=== PATIENT | female | born 1975 | race African-American/Black ===

== ENCOUNTER 2020-02-03 15:27 | Outpatient (CLI) | payer OTHER, SELFPAY ==
--- NOTE | ~2020-02-03 | US_ITS ---
EXAMINATION: US pelvic complete w TV DATE: 02/03/2020 16:09 INDICATION: Right pelvic pain TECHNIQUE: Multiple transabdominal and endovaginal sonographic images of the pelvis were obtained. COMPARISON: None. FINDINGS: The uterus measures 10.4 x 6.4 x 5.6 cm. The endometrial complex measures 6 mm in thickness. 4.2 x 2 .5 x 3.5 cm hypoechoic uterine fibroid at the posterior uterine body and smaller 1.4 x 1.5 x 1.1 cm h ypoechoic fibroid at the more cephalad posterior uterine fundus. 4 mm nabothian cyst at the cervix. T he right ovary measures 3.9 x 1.5 x 2.9 cm. 2.7 x 2.1 x 1.6 cm complex cystic right ovarian lesion wh ich is predominantly anechoic with a few thin linear internal septations and small peripheral avascul ar hypoechoic region suggesting a hemorrhagic cyst. The left ovary measures 2.5 x 2.0 x 1.5 cm. There is normal vascular flow in the ovaries. There is trace amount of likely physiologic fluid at the rig ht adnexa. IMPRESSION: 1. A couple uterine fibroids. 2. 2.7 cm complex cystic right ovarian lesion with appearance favoring a hemorrhagic cyst. Consider f ollow-up ultrasound in 6-12 weeks to document resolution. Reviewed, dictated and finalized at location . CUTTING MACHINE OPERATOR IMPRESSION: 1. A couple uterine fibroids. 2. 2.7 cm complex cystic right ovarian lesion with appearance favoring a hemorr hagic cyst. Consider follow-up ultrasound in 6-12 weeks to document resolution.
== END 2020-02-03 15:28 | disposition home or self-care (01) ==
PROVIDERS: PCP Family Medicine; Visit Provider Student in an Organized Health Care Education/Training Program
DX: R10.2 Pelvic and perineal pain (principal); D25.9 Leiomyoma of uterus, unspecified; N83.291 Other ovarian cyst, right side
CPT/HCPCS: 76830; 76856

== ENCOUNTER 2020-04-29 10:01 | Outpatient (CLI) | payer OTHER, SELFPAY ==
--- NOTE | ~2020-04-29 | US_ITS ---
EXAMINATION: US pelvic complete w TV EXAM DATE: 04/29/2020 10:39 INDICATION: R10.2 - Pelvic and perineal pain. TECHNIQUE: Pelvic transabdominal and transvaginal sonogram was performed. There are multiple graysca le and Doppler images available for interpretation. Comparison is made to prior examination from 01/10. FINDINGS: Uterus measures 11.4 x 4.8 x 6.0 cm, with several fibroids suspected up to 3 cm in the pos terior myometrium. Endometrial stripe measures 6 mm, within normal limits. There is no free pelvic f luid. Right adnexa: The ovary measures 8.8 x 6.2 x 9.0 cm, most of this volume being taken up by an anechoi c cystic lesion which is new compared to previous examination. No evidence of mural nodule. Some delia pheral flow probably within the ovarian parenchyma. Left adnexa: The ovary measures 2.4 x 1.6 x 1.4 cm and is morphologically normal. Ovarian vascular fl ow confirmed. IMPRESSION: Interval development of large right ovarian simple cystic lesion. Differential diagnosis includes hemorrhagic cyst, unusually large physiologic cyst, endometrioma, cystic ovarian neoplasm. R ecommend 6 week follow-up pelvic sonogram. Reviewed, dictated and finalized at location A. GRINDER IMPRESSION: Interval development of large right ovarian simple cystic lesion. D ifferential diagnosis includes hemorrhagic cyst, unusually large physiologic cy st, endometrioma, cystic ovarian neoplasm. Recommend 6 week follow-up pelvic so nogram.
== END 2020-04-29 10:02 | disposition home or self-care (01) ==
PROVIDERS: PCP Family Medicine; Visit Provider Student in an Organized Health Care Education/Training Program
DX: R10.2 Pelvic and perineal pain (principal); N83.9 Noninflammatory disorder of ovary, fallopian tube and broad ligament, unspecified
CPT/HCPCS: 76830; 76856

== ENCOUNTER → 2020-05-17 02:26 | Outpatient (CLI) | payer OTHER, SELFPAY ==
[2020-05-17 22:46] LABS: SARS-CoV-2 RNA PCR Negative
== END ==
PROVIDERS: PCP Family Medicine; Visit Provider Student in an Organized Health Care Education/Training Program
DX: Z01.812 Encounter for preprocedural laboratory examination (principal); Z20.822 Contact with and (suspected) exposure to COVID-19
CPT/HCPCS: C9803; U0003; U0005

== ENCOUNTER 2020-05-20 00:54 | Day surgery (SDC) | payer OTHER, SELFPAY ==
[2020-05-12 16:40] VITALS: BMI 25.7
--- NOTE | 2020-05-19 15:31 | WPDANESEPPF ---
Anes - Initial Pre Proc Eval Procedure: Operation Date: 05/20/20 07:30 Proposed Procedures p Laparoscopic Right Salpingo-Oophorectomy And Left Salpingectomy - Stephanie Gomez MD Date/Time: 05/19/20 15:31 Surgeon: Stephanie Gomez MD Pre Op Diagnosis: Ovarian Cysts Patient Data Age: 44 Gender: F Height: 1.8 m Weight: 83.5 kg Allergies Allergy/AdvReac Type Severity Reaction Status Date / Time Penicillins Allergy Unknown Unknown Verified 05/12/20 16:02 Sulfa (Sulfonamide Allergy Unknown Unknown Verified 05/12/20 16:02 Antibiotics) naproxen [From Anaprox] AdvReac Unknown unknown Verified 05/12/20 16:02 Iodine and Iodide Containing AdvReac sneezing Verified 05/12/20 16:02 Produc Home Medications Medication Instructions Recorded Confirmed Type ascorbate calcium (vitamin C) 500 500 mg PO DAILY 01/22/20 05/12/20 History mg tablet cholecalciferol (vitamin D3) 25 25 mcg PO DAILY 01/22/20 05/12/20 History mcg (1,000 unit) capsule multivitamin,nr-itax-[id number] 1 tablet PO DAILY 01/22/20 05/12/20 History omega-3 fatty acids 1,000 mg 1,000 mg PO DAILY 01/22/20 05/12/20 History capsule zinc 50 mg tablet 50 mg PO DAILY 01/22/20 05/12/20 History vedolizumab 300 mg intravenous 300 mg IV ONCE 05/12/20 05/12/20 History solution Patient hx anesthesia problems: none Family hx anesthesia problems: none PMFSH Past Medical History Medical History Anemia Asthma History of blood transfusion Migraine Miscarriage Post depression 2002 Ulcerative colitis Surgical History Surgical History H/O breast surgery History of bunionectomy of both great toes History of endometrial ablation Family History Family History Mother Breast cancer Cervical cancer Acute myocardial infarction Hypertension High cholesterol Father High cholesterol Hypertension Cerebrovascular accident Social History Social History Smoking status: Never smoker Substance use: never Living arrangements: with family Spiritual care concerns: No Anes - Eval Final PreProcedure Day of Procedure 05/19/20 15:31 Patient weight: normal Heart: regular rate and rhythm Lungs: clear to auscultation and normal air movement Airway: Mallampati scale class II Neurological: alert and oriented Last oral intake: >/= 8 hours ASA classification: II Emergent: no Anesthetic plan: proceed Anesthesia type and monitoring: general ETT Informed Consent: The patient's anesthetic plan and its attendant risks and benefits were discussed with the patient/family/POA. Questions were solicited and answers provided to the satisfaction of the patient/family/POA.
--- NOTE | 2020-05-19 16:34 | PM.IMHP ---
H&P: HPI History of Present Illness Date/Time: 05/19/20 16:34 Patient is a 44yo woman who initially presented to the gynecology office with complaints of pelvic pain in 01/2020. She reported onset of pelvic pain a little more than 1 year prior to presentation. Patient also reports dyspareunia, however, this has been persistent for several years. Pelvic ultrasound was performed and showed a 2.7cm complex right ovarian cyst. Patient was started on OCPs and a pelvic US was repeated three months later in 04/2020. Repeat US findings showed a significant interval enlargement of ovarian cyst, which is now measuring 9 cm. Lengthy discussion had with patient regarding management options and due to large size of cyst as well as symptoms, decision made to proceed with surgical management. In general, patient reports feeling well today without complaints. Chief Complaint: Right ovarian cyst Review of Systems Review of Systems: All systems reviewed & are unremarkable except as noted in HPI and below Constitutional: Constitutional: Reports as per HPI, Reports no additional constitutional complaints, Denies chills, Denies fever(s), Denies headache(s) and Denies night sweats Eyes: Eyes: Reports as per HPI and Reports no additional eye complaints ENT: Reports system reviewed and no additional complaints, except as documented, Reports as per HPI, Reports Normal hearing present and Denies headache(s) Cardiovascular: Cardiovascular: Reports as per HPI, Reports no additional cardiovascular complaints, Denies chest pain and Denies dyspnea Respiratory: Respiratory: Reports as per HPI, Reports no additional respiratory complaints, Denies cough and Denies dyspnea Gastrointestinal: Gastrointestinal: Reports as per HPI, Reports no additional gastrointestinal complaints, Denies abdominal pain, Denies change in bowel habits, Denies change in stool character, Denies nausea and Denies vomiting Genitourinary: Genitourinary: Reports no additional female genitourinary complaints, Reports as per HPI, Denies abnormal vaginal bleeding, Denies genital lesions, Denies hot flashes, Denies dyspareunia, Denies pelvic pain, Denies sexual dysfunction, Denies urinary incontinence, Denies vaginal discharge, Denies vaginal dryness and Denies vaginal odor Musculoskeletal: Musculoskeletal: Reports no additional musculoskeletal complaints and Reports as per HPI Integumentary/Breasts: Skin/Breast: Reports system reviewed and no additional complaints, except as docu, Reports as per HPI, Denies breast pain and Denies nipple discharge Neurologic: Reports system reviewed and no additional complaints, except as documented, Reports as per HPI, Reports Normal hearing present and Denies headache(s) Psychiatric: Psychiatric: Reports no additional psychiatric complaints, Reports as per HPI, Denies anxiety and Denies depression Endocrine: Endocrine: Reports no additional endocrine complaints and Reports as per HPI Hematologic/Lymphatic: Hematologic/Lymphatic: Reports no additional hematologic/lymphatic complaints and Reports as per HPI Allergic/Immunologic: Allergic/Immunologic: Reports no additional allergic/immunologic complaints and Reports as per HPI PMFSH Past Medical History Medical History Anemia Asthma History of blood transfusion Migraine Miscarriage Post depression 2002 Ulcerative colitis Surgical History Surgical History H/O breast surgery History of bunionectomy of both great toes History of endometrial ablation Family History Family History Mother Breast cancer Cervical cancer Acute myocardial infarction Hypertension High cholesterol Father High cholesterol Hypertension Cerebrovascular accident Social History Social History Smoking status: Never smoker
[2020-05-20] VITALS (12 sets, daily range): BP systolic 104–140; BP diastolic 61–88; PULSE 64–97; RESP 10–18; TEMP 36.6–36.8; O2SAT 99–100
[2020-05-20] MEDS: LACTATED RINGERS 1,000 ML 30 ML IV CONT ×2 (06:40→09:04)
[2020-05-20] MEDS: ACETAMINOPHEN 500 MG TABLET 1000 MG PO (06:42)
--- NOTE | 2020-05-20 07:19 | WPDHPUPDATE1 ---
History and Physical Update Update Date/Time: 05/20/20 07:19 History and Physical has been reviewed, including an updated exam of the patient. There are NO changes in the patient's condition. Risks, benefits, and alternatives have been discussed and questions answered. Patient agrees to proceed with procedure. Previously discussed, however, not documented that patient does not desire future fertility.
[2020-05-20] MEDS: KETOROLAC 15 MG/ML VIAL (*BKC) IV PUSH (07:22)
--- NOTE | 2020-05-20 09:14 | PM.PROC ---
Procedure Note - Detailed Date of procedure: 05/20/20 Pre-op diagnosis: Ovarian Cysts Post-op diagnosis: other (Right ovarian cyst; extensive adhesions from omentum and bowel to anterior abdominal wall) Procedure performed: Laparoscopic right salpingo-oophorectomy, left salpingectomy, lysis of adhesions Description of procedure: The patient was taken to the operating room where she self transferred to the operating room table. She was placed in dorsal supine position. General anesthesia was administered and found be adequate. The patient was repositioned in dorsal lithotomy position with use of Dylan stirrups. She was prepped and draped in the usual sterile fashion. A Arredondo catheter was placed using aseptic technique. A bivalve speculum was inserted into the vagina. The cervix was well visualized and the anterior lip of the cervix was grasped with a single-tooth tenaculum. The cervix was serially dilated to accommodate a HUMI uterine manipulator. The uterine manipulator was inserted and insufflated for use during the laparoscopic portion of the case. The tenaculum and speculum were removed. Dobby Looms Pegger's gloves were changed and attention was turned to the patient's abdomen. A small amount of Exparel was injected in the infraumbilical region. An infraumbilical skin incision was made with scalpel. With the abdomen tented up, a Veress needle was inserted into the abdominal cavity. Intra-abdominal placement was confirmed with saline. Carbon dioxide tubing was connected to the Veress needle and insufflation was begun. An adequate pneumoperitoneum was achieved, the Veress needle was removed and a 5 mm Optiview trocar was inserted under direct visualization. The patient was placed in Trendelenburg position for enhanced visualization. A pelvic survey was attempted to be performed, however, due to limited visualization, decision was made to proceed with the placement of two accessory trocars, one in the left lower quadrant and one in the right lower quadrant. A 5 mm trocar was introduced under direct visualization in the left lower quadrant. A blunt probe was used to facilitate a pelvic survey. The right ovary was visualized and noted to be enlarged. Decision was made to convert trocar to a 10 mm trocar. The 5 mm trocar was removed and a 10 mm trocar was introduced. A 5 mm trocar was inserted in the right lower quadrant under direct visualization. With the use of a blunt probe and grasper, the pelvic structures were carefully evaluated. The uterus appeared grossly normal as did the left and right fallopian tubes. The left ovary also appeared normal. As previously seen, the right ovary was noted to be enlarged. Upon further evaluation, extensive adhesions along the right anterior abdominal wall were noted. These adhesions extended from the bowel as well as omentum. The appendix was also noted to be encased in these adhesions. A general abdominal survey was also performed and the visualized portions of the liver and gallbladder appeared to be within normal limits. Several photographs were taken. The left fallopian tube was identified and followed through to the fimbriated end. Starting at the fimbriated and, sequential bites in the mesosalpinx beneath the fallopian tube were taken using a LigaSure device towards the uterine cornua. When the level of the uterine cornua was reached, the fallopian tube was transected and completely detached. The fallopian tube was then removed and handed off to be sent to pathology. Attention was then turned to the patient's right ovary and fallopian tube, which were grasped and guided towards the midline to enhance visualization. The right ureter was visualized. The infundibulopelvic ligament was identified and transected with the LigaSure device. The right fallopian tube was transected near the uterine cornua and the utero-ovarian ligament was identified and also transected with the LigaSure device in a few bites completely freeing the ova
--- NOTE | 2020-05-20 09:32 | SUR.PHASEI ---
0910- Pt shivering. Jocelin Redman placed. Denies presence of pain when asked.
[2020-05-20] MEDS: fentaNYL CITRATE INJ (*CRX) 100 MCG/2 ML VIAL 25 MCG IV PUSH ×2 (09:40→10:00)
[2020-05-20] MEDS: ONDANSETRON INJ 4 MG/2 ML VIAL IV PUSH (10:39)
== END 2020-05-20 12:12 | disposition home or self-care (01) ==
PROVIDERS: PCP Family Medicine; Visit Provider Student in an Organized Health Care Education/Training Program
PROC: (CPT 49320; principal; 2020-05-20 07:30)
DX: N83.291 Other ovarian cyst, right side (principal); N83.8 Other noninflammatory disorders of ovary, fallopian tube and broad ligament; N73.6 Female pelvic peritoneal adhesions (postinfective); R10.2 Pelvic and perineal pain; J45.909 Unspecified asthma, uncomplicated; D64.9 Anemia, unspecified; K51.90 Ulcerative colitis, unspecified, without complications
CPT/HCPCS: 58661; 88305; A9270; C9290; J1100; J1885; J2250; J2405; J2704; J3010; J7030; J7120

== ENCOUNTER 2022-04-07 11:43 | Outpatient (CLI) | payer OTHER, SELFPAY ==
--- NOTE | ~2022-04-07 | US_ITS ---
US thyroid INDICATION: Thyroid goiter TECHNIQUE: Real-time sonographic images of the thyroid gland were obtained. COMPARISON: No prior studies for comparison. FINDINGS: The right thyroid lobe measures 4.6 x 1.6 x 2 cm. The left thyroid lobe measures 4.4 x 1.4 x 1.5 cm. There is homogeneous echotexture in the left thyroid lobe without discrete mass. There is a small oval solid hypoechoic mass of the right thyroid gland which is wider than tall, smoothly alonzo inated without echogenic foci, measuring 5 x 5 x 3 mm, TR 4. No other discrete masses. IMPRESSION: 1. Right thyroid nodule measuring 5 mm, TR 4, likely benign. Reviewed, dictated and finalized at location A. THCARE ARCHITECT
== END 2022-04-07 11:44 ==
PROVIDERS: PCP Family Medicine; Visit Provider Obstetrics & Gynecology
DX: E04.9 Nontoxic goiter, unspecified (principal)
CPT/HCPCS: 76536

== ENCOUNTER → 2023-05-03 12:32 | Outpatient (CLI) | payer OTHER, SELFPAY ==
--- NOTE | ~2023-05-03 | US_ITS ---
EXAMINATION: US thyroid DATE: 05/03/2023 13:02 INDICATION: Nontoxic single thyroid nodule. TECHNIQUE: Multiple ultrasound images of the thyroid were obtained. COMPARISON: Thyroid ultrasound 04/07/2022 FINDINGS: The right thyroid lobe measures 4.6 x 1.4 x 1.6 cm. The left thyroid lobe measures 4.5 x 1.4 x 1.6 c m. In the right thyroid lobe, there is a 5 mm solid, hypoechoic, wider than tall nodule with smooth margin without echogenic foci (TI-RADS TR4). IMPRESSION: 1. Stable small thyroid nodule, likely not clinically significant. No follow-up is needed. Reviewed, dictated and finalized at location E. ER INSPECTOR
== END ==
PROVIDERS: PCP Obstetrics & Gynecology; Visit Provider Obstetrics & Gynecology
DX: E04.1 Nontoxic single thyroid nodule (principal)
CPT/HCPCS: 76536

== ENCOUNTER 2024-06-11 08:13 | Outpatient (CLI) | payer OTHER, SELFPAY ==
--- NOTE | ~2024-06-11 | US_ITS ---
US thyroid INDICATION: Nontoxic goiter TECHNIQUE: Real-time sonographic images of the thyroid gland were obtained. COMPARISON: Ultrasound dated 05/03/2023 and 04/07/2022 FINDINGS: The right thyroid lobe measures 4.6 x 1.4 x 1.6 cm. The left thyroid lobe measures 4.5 x 1 .4 x 1.6 cm. There is normal echotexture and echogenicity throughout the thyroid gland. In the right lobe there is a stable 5 mm oval hypoechoic solid mass which is wider than tall with smooth margins w ithout echogenic foci TI-RADS 4. No other masses are identified. Normal vascular flow is present. IMPRESSION: 1. Stable right thyroid nodule, likely not clinically significant. No follow-up required. Reviewed, dictated and finalized at location A. IMPRESSION: 1. Stable right thyroid nodule, likely not clinically significant. No follow-u p required.
== END 2024-06-11 08:14 | disposition home or self-care (01) ==
LOC: MICIMG 08:14
PROVIDERS: PCP Obstetrics & Gynecology; Visit Provider Obstetrics & Gynecology
DX: E04.1 Nontoxic single thyroid nodule (principal)
CPT/HCPCS: 76536